=== PATIENT | male | born 1985 | race Caucasian/White ===

== ENCOUNTER 2022-04-07 13:44 | Emergency (ER) | payer MEDICAID ==
[~2022-04-07] VITALS: Ht 170.2 cm; Wt 71.2 kg
--- NOTE | 2022-04-07 13:47 | NUR ---
JERRI PATHAK WITH PATIENT AT THIS TIME.
[2022-04-07 13:50] VITALS: BP 133/88
--- NOTE | 2022-04-07 14:02 | NUR ---
DR REEDER AT BEDSIDE EVALUATING PT
[2022-04-07] MEDS ORDERED: ONDANSETRON 4 MG/2 ML VIAL IVP ONE (14:05)
[2022-04-07] MEDS ORDERED: NACL 0.9% 1,000 ML IV ONE (14:05)
--- NOTE | 2022-04-07 14:10 | NUR ---
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 pt states he was out in the sun for several hours when he started to feel dehydrated and generally weak. skin is pink/warm/dry. a&o x4 with even and steady gait. lungs clear bl, heart rate even and regular. pt denies dysuria, hematuria, urinary frequency or retention, or anyone sick in the household with the same symptoms. pt denies any fever, cp, sob, or cough at this time. pt states pain is 6/10 at this time, general body pain. patient positioned for comfort. hob elevated. bed down. ermd made aware of pt. pmh: illcit drug use nka med: denies
[2022-04-07 15:14] LABS: BASOPHILS % (AUTO) 0.3 % (0.0-2.0); EOSINOPHILS % (AUTO) 0.4 % (0.0-4.0); HEMATOCRIT 40.4 % (36-52); HEMOGLOBIN 13.3 g/dL (12.0-18.0); LYMPHOCYTES # (AUTO) 0.6 K/uL (2.0-11.5); LYMPHOCYTES % (AUTO) 6.5 % (20.5-51.1); MEAN CORPUSCULAR HEMOGLOBIN 29 pg (27-31); MEAN CORPUSCULAR HGB CONC 33 g/dL (33-37); MEAN CORPUSCULAR VOLUME 86.8 fL (80-94); MONOCYTES # (AUTO) 0.8 K/uL (0.8-1.0); MONOCYTES % (AUTO) 8.2 % (1.7-9.3); NEUTROPHILS # (AUTO) 8.5 K/uL (1.8-7.7); NEUTROPHILS % (AUTO) 84.6 % (42.2-75.2); PLATELET COUNT (AUTO) 230 K/uL (140-450); RED BLOOD CELL COUNT(AUTO) 4.65 MIL/uL (4.20-6.10); RED CELL DISTRIBUTION WIDTH 13.4 % (11.6-13.7); WHITE BLOOD COUNT (AUTO) 10.1 K/uL (4.8-10.8)
[2022-04-07] MEDS ORDERED: ONDANSETRON 4 MG/2 ML VIAL ONE (15:16)
[2022-04-07 15:42] LABS: ALBUMIN 3.6 g/dL (3.4-5.0); ANION GAP 9.7 (8-16); CARBON DIOXIDE 28.3 mmol/L (21-32); CHLORIDE 104 mmol/L (98-107); CREATININE 0.8 mg/dL (0.6-1.3); GFR ARICAN-AMERICAN 140 mL/min (>90); GLUCOSE 92 mg/dL (74-106); SODIUM SERUM 138 mmol/L (136-145); UREA NITROGEN, BLOOD 10 mg/dL (7-18)
[2022-04-07 15:55] LABS: SALICYLATE 0.6 mg/dL (2.8-20.0)
--- NOTE | 2022-04-07 16:17 | NUR ---
Patient appears to be resting comfortably in bed. Vital Signs within normal limits. Respirations even and unlabored.
[2022-04-07 17:24] LABS: ASPARTATE AMINOTRANSFERASE 25 U/L (15-37); TOTAL BILIRUBIN 0.5 mg/dL (0.0-1.0)
[2022-04-07 17:25] LABS: ACETAMINOPHEN < 0.5 ug/ml (10-30)
[2022-04-07 17:53] VITALS: BP 117/77
--- NOTE | 2022-04-07 17:53 | NUR ---
Patient discharged with v/s stable. Written and verbal after care instructions given and explained. Patient verbalized understanding. Ambulatory with steady gait. All questions addressed prior to discharge. Advised to follow up with PMD.
== END 2022-04-07 17:53 | disposition home or self-care (01) ==
LOC: MED 13:44
DX: R53.1 Weakness (principal); T40.415A Adverse effect of fentanyl or fentanyl analogs, initial encounter; Y92.89 Other specified places as the place of occurrence of the external cause
CPT/HCPCS: 36415; 80053; 82550; 84484; 85025; 96361; 96374; 99283; G0480; G0482; J2405; J7030